=== PATIENT | male | born 2000 | race Hispanic/Latino ===

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

== ENCOUNTER 2021-09-12 17:44 | Emergency (ER) | payer SELFPAY ==
[~2021-09-12] VITALS: Ht 160 cm; Wt 54.4 kg
[2021-09-12 17:45] VITALS: BP 125/78
[2021-09-12] MEDS ORDERED: PRED10TA3 PO (19:56)
[2021-09-12] MEDS ORDERED: DIPHENHYDRAMINE HCL 25 MG CAPSULE PO ONE (20:00)
[2021-09-12] MEDS ORDERED: PREDNISONE 20 MG TABLET PO ONE (20:00)
== END 2021-09-12 20:17 | disposition home or self-care (01) ==
LOC: EDH 17:44
DX: L23.9 Allergic contact dermatitis, unspecified cause (principal); Z88.0 Allergy status to penicillin; Z79.52 Long term (current) use of systemic steroids
CPT/HCPCS: 99283; Q0163

== ENCOUNTER 2021-09-21 16:05 | Emergency (ER) | payer OTHER ==
[~2021-09-21] VITALS: Ht 160 cm; Wt 54.4 kg
[~2021-09-21 16:05] MED LIST: PRED10TA3 PO
[2021-09-21] MEDS ORDERED: FAMOTIDINE 20MG TAB PO ONE (18:00)
[2021-09-21] MEDS ORDERED: PREDNISONE 20 MG TABLET PO ONE (18:00)
[2021-09-21] MEDS ORDERED: DIPHENHYDRAMINE HCL 25 MG CAPSULE PO ONE (18:00)
[2021-09-21] MEDS ORDERED: FAMO-136 PO (18:17)
[2021-09-21] MEDS ORDERED: PRED20TA3 PO (18:17)
[2021-09-21] MEDS ORDERED: FEXO180T94 PO (18:17)
[2021-09-21 18:53] VITALS: BP 114/72
== END 2021-09-21 18:56 | disposition home or self-care (01) ==
LOC: EDH 16:05
DX: L50.9 Urticaria, unspecified (principal); Z88.0 Allergy status to penicillin; Z79.52 Long term (current) use of systemic steroids
CPT/HCPCS: 99284; Q0163

== ENCOUNTER 2021-11-30 17:29 | Emergency (ER) | payer OTHER ==
[~2021-11-30] VITALS: Ht 160 cm; Wt 54.4 kg
[~2021-11-30 17:29] MED LIST changes: +FAMO-136 PO; +FEXO180T94 PO; +PRED20TA3 PO
[2021-11-30] MEDS ORDERED: IBUPROFEN 800 MG TAB PO SCH (18:00)
[2021-11-30 18:14] VITALS: BP 121/77
[2021-11-30] MEDS ORDERED: IBUP-1552 PO (18:30)
[2021-11-30] MEDS ORDERED: CEPH500B PO (18:30)
== END 2021-11-30 18:39 | disposition home or self-care (01) ==
LOC: EDH 17:29
DX: M70.22 Olecranon bursitis, left elbow (principal); L03.114 Cellulitis of left upper limb; Z88.0 Allergy status to penicillin; Z79.1 Long term (current) use of non-steroidal anti-inflammatories (NSAID); Z79.52 Long term (current) use of systemic steroids
CPT/HCPCS: 73070

== ENCOUNTER 2022-01-15 13:48 | Inpatient (IN) | payer OTHER ==
[~2022-01-15] VITALS: Ht 157.5 cm; Wt 56.7 kg
[~2022-01-15 13:48] MED LIST changes: +CEPH500B PO; +IBUP-1552 PO
[2022-01-15] MEDS ORDERED: PROMETHAZINE HCL 25 MG/ML 1ML AMPULE IM ONE (14:30)
[2022-01-15] MEDS ORDERED: LACTATED RINGERS 1000ML 1,000 ML IV ONE (14:30)
[2022-01-15 14:49] LABS: BASOPHILS % (AUTO) 0.1 % (0.0-5.0); HEMATOCRIT 51.8 % (42-54); LYMPHOCYTES % (AUTO) 1.8 % (21.0-51.0); MEAN CORPUSCULAR HEMOGLOBIN 28.7 pg (27.0-33.0); MEAN CORPUSCULAR HGB CONC 34.4 g/dL (32.0-36.0); MEAN CORPUSCULAR VOLUME 83.4 fL (79-99); NEUTROPHILS % (AUTO) 88.8 % (40.0-77.0); PLATELET COUNT (AUTO) 266 K/uL (130-400); RED BLOOD CELL COUNT(AUTO) 6.21 MIL/uL (4.50-6.20); RED CELL DISTRIBUTION WIDTH 13.2 % (11.0-15.5)
[2022-01-15 14:53] LABS: APPEARANCE,URINE Clear (CLEAR); BILIRUBIN,URINE Negative (NEGATIVE); COLOR,URINE Yellow (YELLOW); GLUCOSE, URINE (UA) Negative (NEGATIVE); KETONES,URINE Negative (NEGATIVE); LEUKOCYTE ESTERASE ,URINE Trace (NEGATIVE); NITRATE,URINE Negative (NEGATIVE); OCCULT BLOOD,URINE Negative (NEGATIVE); PROTEIN,URINE Negative (NEGATIVE); UROBILINOGEN,URINE 0.2 mg/dL (0.2-1.0)
[2022-01-15 14:56] LABS: CREATININE 0.8 mg/dL (0.5-1.5); POTASSIUM 3.8 mmol/L (3.5-5.1)
[2022-01-15 15:01] LABS: ALBUMIN 3.3 g/dL (3.5-5.0); BILIRUBIN,TOTAL 1.1 mg/dL (0.2-1.0); TOTAL PROTEIN, SERUM 6.3 g/dL (6.0-8.3)
[2022-01-15 15:17] LABS: BACTERIA,URINE Rare /HPF (None Seen); MUCUS,URINE Moderate LPF (None Seen); RBC,URINE 0-1 /HPF (0-1); SQUAMOUS EPITHELIAL CELL,UR Few /HPF (0-2)
[2022-01-15 15:58] LABS: BAND NEUTROPHILS % (MANUAL) 3 % (0-2); LYMPHOCYTES % (MANUAL) 21 % (22-44); MONOCYTES % (MANUAL) 2 % (2-9); SEGMENTED NEUTROPHILS % 74 % (40-70)
[2022-01-15 16:00] LABS: MAN.DIFF COMMENT-IMPRESSION MANUAL DIFFERENTIAL
[2022-01-15 16:01] LABS: PLATELET MORPHOLOGY COMMENT ADEQUATE
[2022-01-15] MEDS ORDERED: LEVOFLOXACIN 500 MG/D5W 100 ML 100 ML IV SCH (17:00)
[2022-01-15] MEDS ORDERED: PANTOPRAZOLE 40 MG/VIAL IVP ONE (17:00)
[2022-01-15] MEDS ORDERED: ONDANSETRON 4MG INJ IVP PRN (17:00)
[2022-01-15 17:04] LABS: INR 1.09 (0.85-1.15); PROTHROMBIN TIME 11.8 SEC (9.6-11.6)
[2022-01-15 17:05] LABS: PARTIAL THROMBOPLASTIN TIME 21.4 SEC (26.3-35.5)
[2022-01-15] MEDS: LACTATED RINGERS 1000ML 1,000 ML IV SCH (17:25)
[2022-01-15] MEDS: METRONIDAZOLE 500 MG TABLET PO SCH (17:25)
[2022-01-15 19:13] LABS: AMPHET/METH SCREEN,URINE NEGATIVE (NEGATIVE); BARBITURATE SCREEN, URINE NEGATIVE (NEGATIVE); BENZODIAZEPINES SCREEN,URINE NEGATIVE (NEGATIVE); CANNABINOID SCREEN,URINE NEGATIVE (NEGATIVE); COCAINE SCREEN,URINE NEGATIVE (NEGATIVE); OPIATE SCREEN,URINE NEGATIVE (NEGATIVE); PHENCYCLIDINE SCREEN,URINE NEGATIVE (NEGATIVE)
[2022-01-15 22:05] VITALS: BP 123/89
[2022-01-16] MEDS: METRONIDAZOLE 500 MG TABLET PO SCH ×2 (01:37→09:45)
[2022-01-16 03:30] VITALS: BP 121/79
[2022-01-16] MEDS: LACTATED RINGERS 1000ML 1,000 ML IV SCH (03:45)
[2022-01-16 07:20] LABS: BASOPHILS % (AUTO) 0.8 % (0.0-5.0); EOSINOPHILS % (AUTO) 0.8 % (0.0-8.0); HEMATOCRIT 41.2 % (42-54); LYMPHOCYTES % (AUTO) 14.3 % (21.0-51.0); MEAN CORPUSCULAR HEMOGLOBIN 28.7 pg (27.0-33.0); MEAN CORPUSCULAR HGB CONC 34.7 g/dL (32.0-36.0); MEAN CORPUSCULAR VOLUME 82.6 fL (79-99); MONOCYTES % (AUTO) 9.7 % (3.0-13.0); NEUTROPHILS % (AUTO) 69.4 % (40.0-77.0); PLATELET COUNT (AUTO) 187 K/uL (130-400); RED BLOOD CELL COUNT(AUTO) 4.99 MIL/uL (4.50-6.20); RED CELL DISTRIBUTION WIDTH 13.4 % (11.0-15.5); WHITE BLOOD COUNT (AUTO) 14.5 K/uL (4.8-10.8)
[2022-01-16 07:40] LABS: ALBUMIN 2.4 g/dL (3.5-5.0); CREATININE 1.1 mg/dL (0.5-1.5); MAGNESIUM 1.9 mg/dL (1.80-2.40); POTASSIUM 3.5 mmol/L (3.5-5.1); TOTAL PROTEIN, SERUM 5.1 g/dL (6.0-8.3)
[2022-01-16 08:00] VITALS: BP 115/69
[2022-01-16 08:52] LABS: ERYTHROCYTE SEDIMENTATION RATE 0 MM/HR (0-15)
[2022-01-16] MEDS ORDERED: PANTOPRAZOLE 40 MG/VIAL IVP SCH (09:00)
[2022-01-16] MEDS ORDERED: LEVO500T90 PO (09:50)
[2022-01-16] MEDS ORDERED: ONDA-104 PO (09:50)
[2022-01-16] MEDS ORDERED: DICY20TA3 PO (09:50)
== END 2022-01-16 12:10 | disposition home or self-care (01) | DRG 872 ==
LOC: EDH 13:48 → EDHIP 13:49 → 4BH 21:43
PROVIDERS: ADMIT Hospitalist; ATTEND Hospitalist
DX: A41.9 Sepsis, unspecified organism (principal); E87.2 Acidosis; K52.9 Noninfective gastroenteritis and colitis, unspecified; E86.0 Dehydration; R21 Rash and other nonspecific skin eruption
CPT/HCPCS: 36415; 71045; 74176; 80053; 80305; 81001; 82550; 83605; 83735; 84145; 85025; 85378; 85384; 85610; 85651; 85730; 86140; 87040; 87804; 93005; C9113; G0378; J1956; J2405; J2550; J7120

== ENCOUNTER 2022-07-30 20:31 | Emergency (ER) | payer OTHER ==
[~2022-07-30] VITALS: Ht 162.6 cm; Wt 62.6 kg
[~2022-07-30 20:31] MED LIST changes: -CEPH500B PO; +DICY20TA3 PO; -FAMO-136 PO; -FEXO180T94 PO; -IBUP-1552 PO; +LEVO-70 PO; +ONDA-104 PO; -PRED10TA3 PO; -PRED20TA3 PO
[2022-07-30 21:00] LABS: BASOPHILS % (AUTO) 0.4 % (0.0-5.0); EOSINOPHILS % (AUTO) 1.4 % (0.0-8.0); HEMATOCRIT 42.9 % (42-54); LYMPHOCYTES % (AUTO) 19.2 % (21.0-51.0); MEAN CORPUSCULAR HEMOGLOBIN 28.1 pg (27.0-33.0); MEAN CORPUSCULAR HGB CONC 33.8 g/dL (32.0-36.0); MEAN CORPUSCULAR VOLUME 83.1 fL (79-99); MONOCYTES % (AUTO) 7.5 % (3.0-13.0); NEUTROPHILS % (AUTO) 69.8 % (40.0-77.0); PLATELET COUNT (AUTO) 322 K/uL (130-400); RED BLOOD CELL COUNT(AUTO) 5.16 MIL/uL (4.50-6.20); RED CELL DISTRIBUTION WIDTH 12.6 % (11.0-15.5); WHITE BLOOD COUNT (AUTO) 13.2 K/uL (4.8-10.8)
[2022-07-30] MEDS ORDERED: 0.9% NACL 500ML IV.SOLN 500 ML IV SCH (21:00)
[2022-07-30] MEDS ORDERED: PROMETHAZINE HCL 25 MG/ML 1ML AMPULE IM ONE (21:00)
[2022-07-30] MEDS ORDERED: CYCLOBENZAPRINE HCL 10 MG TABLET PO ONE (21:00)
[2022-07-30] MEDS ORDERED: KETOROLAC 30MG VIAL (30MG/ML) IVP ONE (21:00)
[2022-07-30 21:12] LABS: CREATININE 0.8 mg/dL (0.5-1.5); POTASSIUM 3.6 mmol/L (3.5-5.1)
[2022-07-30 21:16] LABS: ALBUMIN 3.8 g/dL (3.5-5.0); TOTAL PROTEIN, SERUM 7.8 g/dL (6.0-8.3)
[2022-07-30] MEDS ORDERED: CYCL10TA16 PO (21:44)
[2022-07-30] MEDS ORDERED: NAPR-1180 PO (21:44)
[2022-07-30 21:47] VITALS: BP 127/71
== END 2022-07-30 21:48 | disposition home or self-care (01) ==
LOC: EDH 20:31
DX: G44.209 Tension-type headache, unspecified, not intractable (principal); Z88.0 Allergy status to penicillin; Z79.899 Other long term (current) drug therapy
CPT/HCPCS: 99283; 96374; 96361; 80053; 85025; 36415; 96372; J7040; J2550; J1885

== ENCOUNTER 2022-11-24 14:29 | Emergency (ER) | payer SELFPAY ==
[~2022-11-24] VITALS: Ht 160 cm; Wt 59.0 kg
[~2022-11-24 14:29] MED LIST changes: +CYCL10TA16 PO; +NAPR-1180 PO
[2022-11-24 14:36] VITALS: BP 146/108
[2022-11-24 15:52] LABS: BASOPHILS % (AUTO) 0.6 % (0.0-5.0); EOSINOPHILS % (AUTO) 3.5 % (0.0-8.0); HEMATOCRIT 46.9 % (42-54); MEAN CORPUSCULAR HEMOGLOBIN 28.2 pg (27.0-33.0); MEAN CORPUSCULAR HGB CONC 33.5 g/dL (32.0-36.0); MEAN CORPUSCULAR VOLUME 84.4 fL (79-99); MONOCYTES % (AUTO) 10.7 % (3.0-13.0); NEUTROPHILS % (AUTO) 67.7 % (40.0-77.0); PLATELET COUNT (AUTO) 306 K/uL (130-400); RED BLOOD CELL COUNT(AUTO) 5.56 MIL/uL (4.50-6.20); RED CELL DISTRIBUTION WIDTH 12.5 % (11.0-15.5); WHITE BLOOD COUNT (AUTO) 11.8 K/uL (4.8-10.8)
[2022-11-24 15:54] LABS: APPEARANCE,URINE CLEAR (CLEAR); BILIRUBIN,URINE NEGATIVE (NEGATIVE); COLOR,URINE LIGHT-YELLOW (YELLOW); GLUCOSE, URINE (UA) NEGATIVE (NEGATIVE); KETONES,URINE NEGATIVE (NEGATIVE); LEUKOCYTE ESTERASE ,URINE NEGATIVE Leu/uL (NEGATIVE); NITRATE,URINE NEGATIVE (NEGATIVE); PH,URINE 6.5 (5.0-8.0); PROTEIN,URINE NEGATIVE (NEGATIVE); UROBILINOGEN,URINE 0.2 mg/dL (0.2-1.0)
[2022-11-24 16:00] LABS: POTASSIUM 4.5 mmol/L (3.5-5.1)
[2022-11-24 16:03] LABS: MUCUS,URINE RARE LPF (None Seen); WBC,URINE 0-1 /HPF (0-1)
[2022-11-24 16:07] LABS: ALBUMIN 3.8 g/dL (3.5-5.0); TOTAL PROTEIN, SERUM 7.5 g/dL (6.0-8.3)
[2022-11-24] MEDS ORDERED: PRED20TA3 PO (16:56)
[2022-11-24] MEDS ORDERED: SOLU-MEDROL 125MG VIAL IM ONE (17:00)
== END 2022-11-24 17:55 | disposition home or self-care (01) ==
LOC: EDH 14:29
DX: T78.40XA Allergy, unspecified, initial encounter (principal); Z79.2 Long term (current) use of antibiotics; Z79.899 Other long term (current) drug therapy; Z88.0 Allergy status to penicillin; Z79.1 Long term (current) use of non-steroidal anti-inflammatories (NSAID); Y92.89 Other specified places as the place of occurrence of the external cause
CPT/HCPCS: 99283; 80053; 85025; 81001; 36415; 96372; J2930

== ENCOUNTER 2023-06-25 12:26 | Emergency (ER) | payer OTHER ==
[~2023-06-25] VITALS: Ht 160 cm; Wt 63.5 kg
[~2023-06-25 12:26] MED LIST changes: +PRED20TA3 PO
[2023-06-25 13:24] LABS: SARS-CoV-2, RNA, NAAT NEGATIVE SARS CoV-2 (NEGATIVE)
[2023-06-25 13:26] LABS: RAPID GROUP A STREP negative (NEGATIVE)
[2023-06-25 13:58] LABS: INFLUENZA TYPE A Negative For Type A (NEGATIVE); INFLUENZA TYPE B Negative For Type B (NEGATIVE)
[2023-06-25 14:39] VITALS: BP 137/98; PULSE 110; RESP 20; O2SAT 99
[2023-06-25] MEDS ORDERED: IBUPROFEN 600 MG TABLET PO ONE (15:00)
[2023-06-25] MEDS ORDERED: ACETAMINOPHEN 500 MG TABLET PO ONE (15:00)
== END 2023-06-25 17:59 | disposition home or self-care (01) ==
LOC: EDH 12:26
DX: B34.9 Viral infection, unspecified (principal); Z20.822 Contact with and (suspected) exposure to COVID-19; Z79.899 Other long term (current) drug therapy; Z88.0 Allergy status to penicillin
CPT/HCPCS: 99283; 87635; 87880; 87804 ×2; C9803

== ENCOUNTER 2023-09-03 10:25 | Emergency (ER) | payer OTHER ==
[~2023-09-03] VITALS: Ht 165.1 cm; Wt 65.8 kg
[2023-09-03] MEDS ORDERED: SULFAMETHOX-TMP DS 800/160 TAB PO ONE (11:00)
[2023-09-03] MEDS ORDERED: IBUP-2070 PO (11:02)
[2023-09-03] MEDS ORDERED: SULF1TAB42 PO (11:02)
[2023-09-03] MEDS ORDERED: HYDROCODONE/ACETAMINOPHEN 5/325 MG TAB PO ONE (11:09)
[2023-09-03 12:09] VITALS: BP 133/74; PULSE 88; RESP 18; O2SAT 98
== END 2023-09-03 12:11 | disposition home or self-care (01) ==
LOC: EDH 10:25
DX: L02.211 Cutaneous abscess of abdominal wall (principal); Z79.899 Other long term (current) drug therapy; Z88.0 Allergy status to penicillin

== ENCOUNTER 2023-11-09 18:12 | Emergency (ER) | payer OTHER ==
[~2023-11-09] VITALS: Ht 160 cm; Wt 63.5 kg
[~2023-11-09 18:12] MED LIST changes: +IBUP-2070 PO; +SULF1TAB42 PO
[2023-11-09 18:21] VITALS: BP 143/97; PULSE 96; RESP 16
[2023-11-09] MEDS ORDERED: CLIN-141 PO (18:52)
[2023-11-09] MEDS ORDERED: CLINDAMYCIN 150 MG CAP PO ONE (19:00)
[2023-11-09] MEDS ORDERED: HYDROCODONE/ACETAMINOPHEN 5/325 MG TAB PO ONE (19:00)
== END 2023-11-09 19:29 | disposition home or self-care (01) ==
LOC: EDH 18:12
DX: K01.1 Impacted teeth (principal); Z79.899 Other long term (current) drug therapy; Z88.0 Allergy status to penicillin

== ENCOUNTER 2024-10-07 17:56 | Emergency (ER) | payer SELFPAY ==
[~2024-10-07] VITALS: Ht 162.6 cm; Wt 63.5 kg
[~2024-10-07 17:56] MED LIST changes: +CLIN-141 PO
[2024-10-07 18:54] LABS: BASOPHILS # (AUTO) 0.13 K/uL (0.00-0.20); BASOPHILS % (AUTO) 0.7 % (0.0-5.0); EOSINOPHILS % (AUTO) 0.5 % (0.0-8.0); HEMATOCRIT 47.4 % (42-54); IMMATURE GRANULOCYTE ABSOLUTE 0.38 K/uL (0-1); LYMPHOCYTES # (AUTO) 3.6 K/uL (1.0-4.8); LYMPHOCYTES % (AUTO) 18.6 % (21.0-51.0); MEAN CORPUSCULAR HGB CONC 33.8 g/dL (32.0-36.0); MONOCYTES # (AUTO) 1.7 K/uL (0.1-1.0); NEUTROPHILS # (AUTO) 13.4 K/uL (1.8-7.7); NEUTROPHILS % (AUTO) 69.2 % (40.0-77.0); PLATELET COUNT (AUTO) 349 K/uL (130-400); RED BLOOD CELL COUNT(AUTO) 5.51 MIL/uL (4.50-6.20); RED CELL DISTRIBUTION WIDTH 12.3 % (11.0-15.5); WHITE BLOOD COUNT (AUTO) 19.3 K/uL (4.8-10.8)
[2024-10-07] MEDS ORDERED: IOHEXOL-350 75 ML VIAL IV ONE (18:57)
[2024-10-07 19:03] LABS: CREATININE 0.9 mg/dL (0.5-1.3); POTASSIUM 3.2 mmol/L (3.5-5.1)
--- NOTE | 2024-10-07 19:42 | HMCIMG ---
CT ORB/TESHA/EAR W/CONTRAST REASON: EYE SWELLING COMPARISON: None TECHNIQUE: Axial images are obtained following IV contrast, 75 cc Omnipaque [id number]. Sagittal and coronal reconstruction images were performed. FINDINGS: There is superficial swelling around the right eye. There is a small focal fluid collection medially measuring 6 mm which could be a small abscess. There is no evidence of gas forming infection. Globes and retrobulbar soft tissues appear unremarkable, there is no evidence of retrobulbar extension. The left eye appears unremarkable. Paranasal sinuses are normally aerated. Facial bones appear intact. IMPRESSION: 1. Moderate superficial swelling around the right eye, there is a 6 mm focal fluid collection medially which could be a small abscess. 2. No evidence of retrobulbar involvement, the remainder of exam is unremarkable.
[2024-10-07] MEDS: LIDOCAINE HCL 1% 20 ML VIAL INJ SCH (21:13)
[2024-10-07] MEDS: cefTRIAXone 1G VIAL IVPB ONE (21:13)
--- NOTE | 2024-10-07 22:07 | ERN ---
ED Note History of Present Illness Stated Complaint: EYE INFECTION Chief Complaint: Eye Problems Time Seen by MD: 18:49 Time Seen by Midlevel: 18:49 Dictation: The patient is a 24-year-old male with no past medical history who presents to the emergency department with right eye swelling onset October 05, 2024 patient denies any insect bite or trauma. Denies any fevers. Denies any drainage. Denies any visual disturbances. Allergies: Coded Allergies: Penicillins (Unverified Allergy, Unknown, 09/12/21) Home Meds Active Scripts Erythromycin Base (Erythromycin) 5 Mg/Gram (0.5 %) Oint...g., 1 CM OP QID for 7 Days, #1 UNIT Prov:ISAAC DEL REAL DEALER SUPPORT TECHNICIAN 10/07/24 Cephalexin Monohydrate (Keflex) 500 Mg Cap, 500 MG PO QID for 10 Days, #40 CAP Prov:ISAAC DEL REAL [facility] 10/07/24 Clindamycin HCl (Clindamycin HCl) 300 Mg Capsule, 1 CAP PO QID for 10 Days, #40 CAP 0 Refills Prov:GERI ANN PIZZ[employer] DELIVERY DRIVER 11/09/23 Sulfamethoxazole/Trimethoprim (Bactrim Ds Tablet) 800 Mg-160 Mg Tablet, 1 TAB PO BID for 7 Days, #14 TAB 0 Refills Prov:BITA PARIKH [employer] DELIVERY DRIVER 09/03/23 Ibuprofen (Ibuprofen) 600 Mg Tablet, 600 MG PO Q6H PRN for PAIN, #15 TAB 0 Refills Prov:BITA PARIKH [employer] DELIVERY DRIVER 09/03/23 Prednisone (Prednisone) 20 Mg Tablet, 1 TAB PO AD for HIVES for 6 Days, #14 TAB 0 Refills TAKE 1 TAB BY MOUTH THREE TIMES PER DAY X3 DAYS, THEN TAKE 1 TAB BY MOUTH TWICE A DAY X2 DAYS, THEN TAKE 1 TAB BY MOUTH ONCE A DAY X1 DAY. Prov:SANDIP CANO DNP 11/24/22 Cyclobenzaprine HCl (Flexeril) 10 Mg Tab, 10 MG PO BID, #30 TAB Prov:ANTON GODINEZ 07/30/22 Naproxen (Naprosyn) 500 Mg Tablet, 500 MG PO BIDPC, #60 TAB Prov:ANTON GODINEZ 07/30/22 Ondansetron HCl (Ondansetron HCl) 4 Mg Tablet, 4 MG PO BID PRN for NAUSEA for 5 Days, #10 TAB 0 Refills Prov:DONIS ADORNO [facility] 01/16/22 Levofloxacin (Levofloxacin) 500 Mg Tablet, 500 MG PO DAILY for 5 Days, #5 TAB 0 Refills Prov:DONIS ADORNO [facility] 01/16/22 Dicyclomine HCl (Dicyclomine HCl) 20 Mg Tablet, 20 MG PO TID for 5 Days, #15 TAB 0 Refills Prov:DONIS ADORNO [facility] 01/16/22 Past Medical History Past Medical History: No Pertinent History Surgical History: None Family History: Negative Social History: Lives with family RN Note Reviewed/Agreed w/PFSH: Yes Review of System Dictation Constitutional: Negative for fever,chills, and weight loss Eyes: Negative for injury, pain,redness, and discharge ENT: Negative for injury,pain or swelling Cardiovascular: Negative for chest pain, palpitations, and edema Respiratory: Negative for shortness of breath, cough, and wheezing, Abdomen/GI: Negative for abdominal pain, nausea, vomiting, diarrhea, and constipation Back: Negative for injury and pain : Negative for injury, bleeding and discharge MS/Extremity: Negative for injury and deformity Skin: Negative for rash, and discoloration positive for right eyelid swelling Neuro: Negative for headache, weakness, numbness, tingling, and seizure Psych: Negative for suicide ideation, homicidal ideation, and hallucinations Initial Vital Sign VS Vital Signs Date Time Temp Pulse Resp B/P (MAP) Pulse Ox O2 Delivery O2 Flow Rate FiO2 10/07/24 19:06 98.2 86 16 145/68 98 Room Air* 0 21 Physical Exam Dictation Vital Signs reviewed General Appearance: Alert, oriented x 3, no acute distress, well developed, nourished. Head and Face: non-traumatic. Eyes: PERRL, pink conjunctivas, eyelid no trauma, anterior chamber with arcus senilis. Right eyelid with swelling and erythema, ocular movement intact, no pain Ears: Pinnas intact and no signs of trauma or erythema ear canals clear and no discharge TM no erythema Nose: No discharge, no bleeding. Oropharynx: Mouth normal, tongue pink. pharynx clear,no erythema, tonsils no exudates, no abscesses noted, mucous membrane moist Neck: Supple, non-tender, no thyromegaly, no masses, no JVD, no bruits Breast:Deferred Chest:No tenderness, no crepitus, no paradoxical movement, no retractions Lungs:Clear, well-ventilated, symmetric, no rales, no wheezing, no rhonchi, no stridor, good breath sounds bilaterally Heart: Regular rate, regular rhythm, no murmur, no gallops Vascular: no peripheral edema, Abdomen: Soft, positive bowel sounds, nondistended, no guarding, nontender, no rebound, no masses no hepatomegaly, no splenomegaly, no Bower's sign, no hernias. Rectal: Deferred Genital: Deferred Neurological: Normal speech, motor function intact, sensory function intact Musculoskeletal: Neck nontender, full range of motion, back nontender, full range of motion, Extremities: nontender, full range of motion Skin: Color pink, dry, no turgor, no rash, no lacerations, no abrasions, no contusions. Lymphatic: Deferred Results (Laboratory/Radiology) Laboratory/Radiology Laboratory Tests Test 10/07/24 18:46 White Blood Count 19.3 K/uL (4.8-10.8) H Red Blood Count 5.51 MIL/uL (4.50-6.20) Hemoglobin 16.0 g/dL (14.0-18.0) Hematocrit 47.4 % (42-54) Mean Corpuscular Volume 86.0 fL (79-99) Mean Corpuscular Hemoglobin 29.0 pg (27.0-33.0) Mean Corpuscular Hemoglobin Concent 33.8 g/dL (32.0-36.0) Red Cell Distribution Width 12.3 % (11.0-15.5) Platelet Count 349 K/uL (130-400) Mean Platelet Volume 10.1 fL (7.5-10.5) Immature Granulocyte % (Auto) 2.0 % (0-1) H Neutrophils (%) (Auto) 69.2 % (40.0-77.0) Lymphocytes (%) (Auto) 18.6 % (21.0-51.0) L Monocytes (%) (Auto) 9.0 % (3.0-13.0) Eosinophils (%) (Auto) 0.5 % (0.0-8.0) Basophils (%) (Auto) 0.7 % (0.0-5.0) Neutrophils # (Auto) 13.4 K/uL (1.8-7.7) H Lymphocytes # (Auto) 3.6 K/uL (1.0-4.8) Monocytes # (Auto) 1.7 K/uL (0.1-1.0) H Eosinophils # (Auto) 0.10 K/uL (0.00-0.70) Basophils # (Auto) 0.13 K/uL (0.00-0.20) Absolute Immature Granulocyte (auto 0.38 K/uL (0-1) Nucleated Red Blood Cells 0.0 % (0.0-0.19) Sodium Level 143 mmol/L (136-145) Potassium Level 3.2 mmol/L (3.5-5.1) L Chloride Level 102 mmol/L (101-111) Carbon Dioxide Level 34 mmol/L (21-32) H Blood Urea Nitrogen 7 mg/dL (7-18) Creatinine 0.9 mg/dL (0.5-1.3) Glomerular Filtration Rate Calc 122 mL/min (>90) Random Glucose 92 mg/dL (70-105) Total Calcium 8.9 mg/dL (8.5-10.1) REASON: EYE SWELLING ORDERING PHYSICIAN: ISAAC DEL REAL PROCEDURE: ORB IAC W - CT ORB/MELANIE/EAR W/CONTRAST CT ORB/MELANIE/EAR W/CONTRAST REASON: EYE SWELLING COMPARISON: None TECHNIQUE: Axial images are obtained following IV contrast, 75 cc Omnipaque 350. Sagittal and coronal reconstruction images were performed. FINDINGS: There is superficial swelling around the right eye. There is a small focal fluid collection medially measuring 6 mm which could be a small abscess. There is no evidence of gas forming infection. Globes and retrobulbar soft tissues appear unremarkable, there is no evidence of retrobulbar extension. The left eye appears unremarkable. Paranasal sinuses are normally aerated. Facial bones appear intact. IMPRESSION: 1. Moderate superficial swelling around the right eye, there is a 6 mm focal fluid collection medially which could be a small abscess. 2. No evidence of retrobulbar involvement, the remainder of exam is unremarkable. Labs Reviewed?: Yes ED Course ED Course Orders Procedure Category Date Status Time Ct Orb/Melanie/Ear CT 10/07/24 Resulted W/Contrast 18:33 Cbc With Differential LAB 10/07/24 Complete 18:33 Basic Metabolic Panel LAB 10/07/24 Complete 18:33 Iohexol (Omnipaque) PHA 10/07/24 Complete 18:57 Lidocaine Hcl 1% 20ml PHA 10/07/24 Complete Vial (Lidocaine Hc 20:30 I&D Set Up Bedside CPOE 10/07/24 Transmitted (Er) 20:03 Ceftriaxone 1g Vial PHA 10/07/24 Complete (Rocephine 1g Inj) 20:30 Us Soft Tissue Head US 10/07/24 Resulted 22:02 Current Medications Medications (Trade) Dose Ordered Sig/Collin Route PRN Reason Start Time Stop Time Status Last Admin Dose Admin Ceftriaxone Sodium (ROCEphine 1G INJ) 1 gm ONCE ONCE IVPB 10/07/24 20:30 10/07/24 20:31 DC 10/07/24 21:13 Iohexol (Omnipaque) 75 ml STK-MED ONCE IV 10/07/24 18:57 10/07/24 18:58 DC Lidocaine HCl (Lidocaine HCl 1% 20ml Vial) 10 ml ONCE INJ 10/07/24 20:30 10/07/24 22:42 DC 10/07/24 21:13 Vital Signs Date Time Temp Pulse Resp B/P (MAP) Pulse Ox O2 Delivery O2 Flow Rate FiO2 10/07/24 22:33 98.2 60 16 140/60 98 Room Air* 0 21 10/07/24 19:06 98.2 68 16 145/68 98 Room Air 10/07/24 19:06 98.2 86 16 145/68 98 Room Air* 0 21 Medical Decision Making MDM The patient is a 24-year-old male with no past medical history who presents to the emergency department with right eye swelling onset October 05, 2024 patient denies any insect bite or trauma. Denies any fevers. Denies any drainage. Denies any visual disturbances. CBC showed leukocytosis, no anemia, normal renal function, mild hypokalemia, CT showed moderate superficial swelling around the right eye no evidence of retrobulbar involvement. Ultrasound revealed no abscess. Patient giving antibiotics while in ER. Will be discharged on antibiotics and instructed to follow up with PCP and Ophthalmology. Differential diagnosis: Periorbital cellulitis, sepsis, abscess, sepsis Need for hospitalization: Patient does not meet criteria for hospitalization. There are no social concerns with this patient. DX & DISP Disposition: Discharge Departure Impression: Primary Impression: Cellulitis of right upper eyelid Condition: Stable Scripts Erythromycin Base (Erythromycin) 5 Mg/Gram (0.5 %) Oint...g. 1 CM OP QID for 7 Days, #1 UNIT Prov: GTISAAC [facility] 10/07/24 Cephalexin Monohydrate (Keflex) 500 Mg Cap 500 MG PO QID for 10 Days, #40 CAP Prov: ISAAC DEL REAL 10/07/24 Referrals: SELF,REFERRAL (PCP) Time of Disposition: 22:13 I have reviewed the case, and I agree with, Diagnosis and Plan ATTESTATION BY PHYSICIAN I PERFORMED THE SUBSTANTIVE PORTION OF THE VISIT. I HAVE REVIEWED AND PERSONALLY MADE AND APPROVED THE MANAGEMENT PLAN THAT IS DOCUMENTED IN THE NOTE BY MYSELF FOR THE A PP. I ACKNOWLEDGED FOR RESPONSIBILITY FOR THE PATIENT'S MANAGEMENT PLAN. ISAAC DEL REAL Oct 07, 2024 22:07 DONALD SINHA MD Oct 09, 2024 19:33
[2024-10-07] MEDS ORDERED: ERYT1OIN7 OP (22:20)
[2024-10-07] MEDS ORDERED: CEPH500B PO (22:20)
[2024-10-07 22:33] VITALS: BP 140/60; PULSE 60; RESP 16; TEMP 98.3; O2SAT 98
--- NOTE | 2024-10-08 01:15 | HMCIMG ---
US SOFT TISSUE HEAD REASON: right eye. COMPARISON: None TECHNIQUE: Right upper eyelid ultrasound study was performed. FINDINGS: Over the region of interest, there is hyperemia with edema noted within the subcutaneous tissue suspicious for cellulitis. No drainable fluid collection is seen. IMPRESSION: Findings suspicious for cellulitis of right upper eyelid area.
== END 2024-10-07 22:42 | disposition home or self-care (01) ==
LOC: EDH 17:56
DX: H00.031 Abscess of right upper eyelid (principal); Z79.899 Other long term (current) drug therapy; Z88.0 Allergy status to penicillin
CPT/HCPCS: 99285; 96374; 70481; 80048; 85025; 36415; 76536; J0696; Q9967